=== PATIENT | female | born 1965 | race Caucasian/White ===

== ENCOUNTER 2018-03-24 09:50 | Day surgery (SDC) | payer OTHER ==
[~2018-03-24 09:50] MED LIST: ANTIVERT PO; ATENOLOL50 MG PO; CLONAZEPAM2 MG PO; COD LIVER OIL1 EACH PO; CYMBALTA30 MG PO; HYDROCHLOROTH12.5 M1 PO; LYRICA150 MG PO; PRILO PO; ULTRAM50 MG PO; ZANAFLEX2 M1 PO
== END 2018-03-24 13:40 | disposition home or self-care (01) ==
LOC: AMB-ENDOS 09:50
DX: D12.8 Benign neoplasm of rectum (principal); K57.30 Diverticulosis of large intestine without perforation or abscess without bleeding; K64.2 Third degree hemorrhoids

== ENCOUNTER 2019-12-24 07:33 | Outpatient (CLI) | payer OTHER | END 2019-12-24 07:38 | disposition home or self-care (01) | LOC: SONOGRAMA 07:33 | DX: E04.1 Nontoxic single thyroid nodule (principal) ==